=== PATIENT | female | born 1955 | race Caucasian/White ===

== ENCOUNTER 2018-07-30 10:40 | Outpatient (CLI) | payer OTHER ==
[2018-07-30 17:57] LABS: INR 2.1 (0.8-1.2); PT - PROTHROMBIN TIME 23.1 secs (9.9-12.6)
== END 2018-07-30 10:41 | disposition home or self-care (01) ==
LOC: LAB.F 10:40
PROVIDERS: ATTEND Emergency Medicine
DX: I48.1 Persistent atrial fibrillation (principal)
CPT/HCPCS: 36415; 85610

== ENCOUNTER 2021-02-23 14:59 | Outpatient (CLI) | payer OTHER ==
[2021-02-23 19:59] LABS: INR 2.3 (0.8-1.2); PT - PROTHROMBIN TIME 23.9 secs (9.9-12.6)
== END 2021-02-23 15:00 | disposition home or self-care (01) ==
LOC: LAB.S 14:59
PROVIDERS: ATTEND Internal Medicine Clinical Cardiac Electrophysiology
DX: I48.91 Unspecified atrial fibrillation (principal)
CPT/HCPCS: 36415; 85610

== ENCOUNTER 2021-04-05 13:34 | Outpatient (CLI) | payer OTHER ==
[2021-04-05 19:54] LABS: INR 1.7 (0.8-1.2); PT - PROTHROMBIN TIME 18.8 secs (9.9-12.6)
== END 2021-04-05 13:35 | disposition home or self-care (01) ==
LOC: LAB.S 13:34
PROVIDERS: ATTEND Internal Medicine Clinical Cardiac Electrophysiology
DX: I48.91 Unspecified atrial fibrillation (principal)
CPT/HCPCS: 36415; 85610

== ENCOUNTER 2021-04-12 14:19 | Outpatient (CLI) | payer OTHER | END 2021-04-12 14:20 | disposition home or self-care (01) | LOC: LAB.S 14:19 | PROVIDERS: ATTEND Internal Medicine Clinical Cardiac Electrophysiology | DX: I48.91 Unspecified atrial fibrillation (principal) | CPT/HCPCS: 36416; 85610 ==

== ENCOUNTER 2021-04-19 15:26 | Outpatient (CLI) | payer OTHER | END 2021-04-19 15:27 | disposition home or self-care (01) | LOC: LAB.S 15:26 | PROVIDERS: ATTEND Internal Medicine Clinical Cardiac Electrophysiology | DX: I48.91 Unspecified atrial fibrillation (principal) | CPT/HCPCS: 36416; 85610 ==

== ENCOUNTER 2021-05-24 14:52 | Outpatient (CLI) | payer OTHER | END 2021-05-24 14:53 | disposition home or self-care (01) | LOC: LAB.S 14:52 | PROVIDERS: ATTEND Internal Medicine Clinical Cardiac Electrophysiology | DX: I48.91 Unspecified atrial fibrillation (principal) | CPT/HCPCS: 85610 ==

== ENCOUNTER 2021-06-02 17:19 | Outpatient (CLI) | payer OTHER ==
[2021-06-02 17:35] LABS: MUDS CUTOFF CONCENTRATIONS CUTOFF CONC BELOW:
[2021-06-02 20:19] LABS: AMPHETAMINE SCREEN,URINE NEGATIVE (NEGATIVE); BARBITURATE SCREEN,UR NEGATIVE (NEGATIVE); BENZODIAZEPINES SCREEN, URINE NEGATIVE (NEGATIVE); COCAINE SCREEN URINE NEGATIVE (NEGATIVE); METHADONE SCREEN, URINE NEGATIVE (NEGATIVE); METHAMPHETAMINES SCREEN, URINE NEGATIVE (NEGATIVE); OPIATE SCREEN, URINE POSITIVE (NEGATIVE); OXYCODONE SCREEN, URINE NEGATIVE (NEGATIVE); PROPOXYPHENE SCREEN, URINE NEGATIVE (NEGATIVE); THC CANNABINOID SCREEN, URINE NEGATIVE (NEGATIVE); TRICYCLIC ANTIDEPRESSANT,URINE NEGATIVE (NEGATIVE)
== END 2021-06-02 17:20 | disposition home or self-care (01) ==
LOC: LAB.S 17:19
PROVIDERS: ATTEND Internal Medicine
DX: I48.91 Unspecified atrial fibrillation (principal); Z79.891 Long term (current) use of opiate analgesic
CPT/HCPCS: 80306; 85610

== ENCOUNTER 2021-06-16 14:55 | Outpatient (CLI) | payer OTHER | END 2021-06-16 14:56 | disposition home or self-care (01) | LOC: LAB.S 14:55 | PROVIDERS: ATTEND Internal Medicine Clinical Cardiac Electrophysiology | DX: I48.91 Unspecified atrial fibrillation (principal) | CPT/HCPCS: 36416; 85610 ==

== ENCOUNTER 2021-06-30 16:45 | Outpatient (CLI) | payer OTHER | END 2021-06-30 16:46 | disposition home or self-care (01) | LOC: LAB.S 16:45 | PROVIDERS: ATTEND Internal Medicine Clinical Cardiac Electrophysiology | DX: I48.91 Unspecified atrial fibrillation (principal) | CPT/HCPCS: 36416; 85610 ==

== ENCOUNTER 2021-07-21 14:31 | Outpatient (CLI) | payer OTHER | END 2021-07-21 14:32 | disposition home or self-care (01) | LOC: LAB.S 14:31 | PROVIDERS: ATTEND Internal Medicine Clinical Cardiac Electrophysiology | DX: I48.91 Unspecified atrial fibrillation (principal) | CPT/HCPCS: 36416; 85610 ==

== ENCOUNTER 2021-08-18 13:19 | Outpatient (CLI) | payer OTHER ==
[2021-08-18 20:07] LABS: BASOPHILS % (AUTO) 0.9 %; EOSINOPHILS # (AUTO) 0.1 10^3/uL (0.0-0.7); EOSINOPHILS % (AUTO) 1.8 %; HCT - HEMATOCRIT 44.9 % (37.0-47.0); HGB - HEMOGLOBIN 13.6 g/dL (12.0-16.0); LYMPHOCYTES # (AUTO) 0.9 10^3/uL (1.5-3.5); LYMPHOCYTES % (AUTO) 19.5 %; MEAN CORPUSCULAR HEMOGLOBIN 31.5 pg (27.0-31.0); MEAN CORPUSCULAR HGB CONC 30.3 g/dL (32.0-36.0); MEAN CORPUSCULAR VOLUME 103.9 fL (81.0-99.0); MEAN PLATELET VOLUME 10.1 fL (7.9-10.8); MONOCYTES # (AUTO) 0.4 10^3/uL (0.0-1.0); MONOCYTES % (AUTO) 8.5 %; NEUTROPHILS # (AUTO) 3.2 10^3/uL (1.5-6.6); NEUTROPHILS % (AUTO) 69.1 %; PLT - PLATELET COUNT 135 10^3/uL (130-450); RED BLOOD COUNT 4.32 10^6/uL (4.20-5.40); RED CELL DISTRIBUTION WIDTH 16.6 % (12.0-15.0); WHITE BLOOD COUNT 4.6 x10^3/uL (4.8-10.8)
[2021-08-18 20:10] LABS: ALBUMIN 3.8 g/dL (3.2-5.5); ALBUMIN/GLOBULIN RATIO 1.2 (1.0-2.2); BILIRUBIN,TOTAL 1.3 mg/dL (0.2-1.0); CALCIUM 9.9 mg/dL (8.5-10.3); CREATININE 1.2 mg/dL (0.4-1.0); POTASSIUM 3.7 mmol/L (3.5-5.0); TOTAL PROTEIN 7.1 g/dL (6.7-8.2)
== END 2021-08-18 13:20 | disposition home or self-care (01) ==
LOC: LAB.S 13:19
PROVIDERS: ATTEND Internal Medicine Clinical Cardiac Electrophysiology
DX: I48.91 Unspecified atrial fibrillation (principal)
CPT/HCPCS: 36415; 80053; 83704; 85025; 85610

== ENCOUNTER 2021-09-09 14:15 | Outpatient (CLI) | payer OTHER ==
[2021-09-09 15:57] LABS: BILIRUBIN,URINE NEGATIVE (NEGATIVE); GLUCOSE, URINE (UA) NEGATIVE (NEGATIVE); KETONES,URINE (UA) NEGATIVE (NEGATIVE); LEUKOCYTE ESTERASE, URINE LARGE (NEGATIVE); NITRITE,URINE NEGATIVE (NEGATIVE); OCCULT BLOOD,URINE TRACE-INTA (NEGATIVE); PROTEIN,URINE NEGATIVE (NEGATIVE); UROBILINOGEN,URINE 0.2 (NORMAL) E.U./dL (NORMAL)
[2021-09-09 16:12] LABS: BACTERIA,URINE Few /HPF (None Seen); CLARITY,URINE HAZY (CLEAR); SQUAMOUS EPITHELIAL CELL,UR RARE Squamous (<= Few); WBC,URINE >25 /HPF (0-5)
== END 2021-09-09 14:16 | disposition home or self-care (01) ==
LOC: LAB.S 14:15 → LAB 14:16
PROVIDERS: ATTEND Internal Medicine
DX: B34.9 Viral infection, unspecified (principal); I48.91 Unspecified atrial fibrillation
CPT/HCPCS: 36416; 81001; 85610; 87077; 87086; 87181

== ENCOUNTER 2021-09-15 13:56 | Outpatient (CLI) | payer OTHER | END 2021-09-15 13:57 | disposition home or self-care (01) | LOC: LAB.S 13:56 | PROVIDERS: ATTEND Internal Medicine Clinical Cardiac Electrophysiology | DX: I48.91 Unspecified atrial fibrillation (principal) | CPT/HCPCS: 36416; 85610 ==

== ENCOUNTER 2021-09-24 15:16 | Outpatient (CLI) | payer OTHER | END 2021-09-24 15:17 | disposition home or self-care (01) | LOC: LAB.S 15:16 | PROVIDERS: ATTEND Internal Medicine Clinical Cardiac Electrophysiology | DX: I48.91 Unspecified atrial fibrillation (principal) | CPT/HCPCS: 36416; 85610 ==

== ENCOUNTER 2021-10-01 14:57 | Outpatient (CLI) | payer OTHER ==
[2021-10-01 20:27] LABS: ABSOLUTE RETICS # AUTO 0.104 10^6/uL (0.020-0.110); BASOPHILS % (AUTO) 0.9 %; EOSINOPHILS # (AUTO) 0.1 10^3/uL (0.0-0.7); EOSINOPHILS % (AUTO) 2.4 %; HCT - HEMATOCRIT 41.8 % (37.0-47.0); HGB - HEMOGLOBIN 13.3 g/dL (12.0-16.0); LYMPHOCYTES # (AUTO) 0.8 10^3/uL (1.5-3.5); LYMPHOCYTES % (AUTO) 17.3 %; MEAN CORPUSCULAR HEMOGLOBIN 31.9 pg (27.0-31.0); MEAN CORPUSCULAR HGB CONC 31.8 g/dL (32.0-36.0); MEAN CORPUSCULAR VOLUME 100.2 fL (81.0-99.0); MEAN PLATELET VOLUME 10.6 fL (7.9-10.8); MONOCYTES # (AUTO) 0.4 10^3/uL (0.0-1.0); MONOCYTES % (AUTO) 8.2 %; NEUTROPHILS # (AUTO) 3.3 10^3/uL (1.5-6.6); PLT - PLATELET COUNT 156 10^3/uL (130-450); RED BLOOD COUNT 4.17 10^6/uL (4.20-5.40); RED CELL DISTRIBUTION WIDTH 16.5 % (12.0-15.0); WHITE BLOOD COUNT 4.6 x10^3/uL (4.8-10.8)
[2021-10-01 20:44] LABS: ALBUMIN 3.6 g/dL (3.2-5.5); ALBUMIN/GLOBULIN RATIO 1.1 (1.0-2.2); ALKALINE PHOSPHATASE 73 IU/L (42-121); ALT ALANINE AMINOTRANSFERASE 29 IU/L (10-60); AST ASPARTATE AMINOTRANSFERASE 31 IU/L (10-42); BILIRUBIN,TOTAL 1.4 mg/dL (0.2-1.0); BUN - BLOOD UREA NITROGEN 38 mg/dL (6-20); CALCIUM 9.7 mg/dL (8.5-10.3); CARBON DIOXIDE - CO2 30 mmol/L (21-32); CHLORIDE 97 mmol/L (101-111); CHOL/HDL RATIO 2.4 (<4.4); CHOLESTEROL 95 mg/dL; CREATININE 1.5 mg/dL (0.4-1.0); GFR - MDRD 35 (>89); GLUCOSE 129 mg/dL (70-100); HDL CHOLESTEROL 40 mg/dL; LDL CHOLESTEROL,CALCULATED 36 mg/dL; LDL/HDL RATIO 0.9 (<4.4); POTASSIUM 3.5 mmol/L (3.5-5.0); SODIUM 139 mmol/L (135-145); TRIGLYCERIDES 95 mg/dL; VLDL CHOLESTEROL 19 mg/dL
[2021-10-01 22:08] LABS: ESTIMATED AVERAGE GLUCOSE 131 mg/dL (70-100); HEMOGLOBIN A1c% 6.2 % (4.27-6.07)
[2021-10-05 22:46] LABS: ALBUMIN 3.5 g/dL (3.8-4.8); ALPHA 1 GLOBULIN 0.3 g/dL (0.2-0.3); ALPHA 2 GLOBULIN 0.6 g/dL (0.5-0.9); BETA 1 GLOBULIN 0.6 g/dL (0.4-0.6); BETA 2 GLOBULIN 0.3 g/dL (0.2-0.5); GAMMA GLOBULIN 1.5 g/dL (0.8-1.7)
== END 2021-10-01 14:58 | disposition home or self-care (01) ==
LOC: LAB.S 14:57
PROVIDERS: ATTEND Internal Medicine Clinical Cardiac Electrophysiology
DX: I48.91 Unspecified atrial fibrillation (principal); I10 Essential (primary) hypertension
CPT/HCPCS: 36415; 36416; 80053; 80061; 81599; 82607; 82746; 83010; 83036; 83615; 83721; 84155; 84165; 85025; 85045; 85610

== ENCOUNTER 2022-08-11 10:48 | Outpatient (CLI) | payer OTHER | END 2022-08-11 10:49 | disposition EMS.NT | LOC: EMS 10:48 | DX: Z03.89 Encounter for observation for other suspected diseases and conditions ruled out (principal) ==

== ENCOUNTER 2022-10-06 14:54 | Outpatient (CLI) | payer OTHER | END 2022-10-06 23:59 | disposition EMS.NT | LOC: EMS 14:54 | DX: R53.1 Weakness (principal) ==

== ENCOUNTER 2022-10-22 11:07 | Outpatient (CLI) | payer OTHER | END 2022-10-22 11:08 | disposition EMS.NT | LOC: EMS 11:07 | DX: Z03.89 Encounter for observation for other suspected diseases and conditions ruled out (principal) ==

== ENCOUNTER 2022-10-24 02:45 | Outpatient (CLI) | payer MEDICARE | END 2022-10-24 02:46 | disposition critical access hospital (66) | LOC: EMS 02:45 | DX: R29.6 Repeated falls (principal); R41.0 Disorientation, unspecified; R06.02 Shortness of breath; R53.1 Weakness; R53.83 Other fatigue | CPT/HCPCS: A0425; A0429 ==

== ENCOUNTER 2022-10-24 03:28 | Emergency (ER) | payer MEDICARE, OTHER ==
[2022-10-24] MEDS ORDERED: BACITRACIN ZINC OINT 1 PACKET TOP STA (03:55)
[2022-10-24] MEDS ORDERED: TETANUS/DIPHTHERIA/PERTUSSIS 0.5 ML SYRINGE IM ONE (03:55)
[2022-10-24 05:02] LABS: BASOPHILS % (AUTO) 0.2 %; EOSINOPHILS % (AUTO) 0.1 %; HCT - HEMATOCRIT 49.1 % (37.0-47.0); LYMPHOCYTES # (AUTO) 0.7 10^3/uL (1.5-3.5); LYMPHOCYTES % (AUTO) 4.1 %; MEAN CORPUSCULAR HEMOGLOBIN 30.3 pg (27.0-31.0); MEAN CORPUSCULAR HGB CONC 30.5 g/dL (32.0-36.0); MEAN CORPUSCULAR VOLUME 99.2 fL (81.0-99.0); MEAN PLATELET VOLUME 10.8 fL (7.9-10.8); MONOCYTES # (AUTO) 1.5 10^3/uL (0.0-1.0); MONOCYTES % (AUTO) 8.7 %; NEUTROPHILS # (AUTO) 14.7 10^3/uL (1.5-6.6); NEUTROPHILS % (AUTO) 86.4 %; NRBC ABSOLUTE COUNT (AUTO) 0.02 x10^3/uL; NUCLEATED RED BLOOD CELLS AUTO 0.1 /100WBC; PLT - PLATELET COUNT 122 10^3/uL (130-450); RED BLOOD COUNT 4.95 10^6/uL (4.20-5.40); RED CELL DISTRIBUTION WIDTH 17.2 % (12.0-15.0); VBG PCO2 59.1 mmHg (41-51); VBG PH 7.332 (7.31-7.41)
[2022-10-24 05:03] LABS: VBG BASE EXCESS 2.9 mmol/L (-2 - +2); VBG HCO3 30.6 mmol/L (23-28); VBG OXYGEN SATURATION 78.4 % (60-80); VBG PO2 46.2 mmHg (25-47); VBG TOTAL CO2 32.4 mmol/L (24-29)
[2022-10-24 05:07] LABS: B. PARAPERTUSSIS- RESP PCR PAN NOT DETECTED; B. PERTUSSIS- RESP PCR PANEL NOT DETECTED; C. PNEUMONIAE- RESP PCR PANEL NOT DETECTED; CORONAVIRUS 229E-RESP PCR NOT DETECTED; CORONAVIRUS HKU1-RESP PCR NOT DETECTED; CORONAVIRUS NL63-RESP PCR NOT DETECTED; CORONAVIRUS OC43-RESP PCR NOT DETECTED; HUMAN METAPNEUMOVIRUS NOT DETECTED; INFLUENZA A- RESP PCR PANEL NOT DETECTED; INFLUENZA B - RESP PCR PANEL NOT DETECTED; M. PNEUMONIAE- RESP PCR PANEL NOT DETECTED; PARAINFLUENZA VIRUS 1 NOT DETECTED; PARAINFLUENZA VIRUS 2 NOT DETECTED; PARAINFLUENZA VIRUS 3 NOT DETECTED; PARAINFLUENZA VIRUS 4 NOT DETECTED; RHINOVIRUS/ENTEROVIRUS NOT DETECTED; RSV- RESP PCR PANEL NOT DETECTED; SARS-CoV-2 -RESP PCR PANEL NOT DETECTED
[2022-10-24] MEDS ORDERED: IPRATROPIUM/ALBUTEROL 3 ML NEB INH STA (05:31)
--- NOTE | 2022-10-24 06:06 | ED Physician Documentation ---
History of Present Illness - Stated complaint Stated Complaint: GLF, BILAT CELLULITIS, PRESSURE SORES - Chief complaint Chief Complaint: Neuro - History obtained from History obtained from: Patient - Additonal information Additional information: 67yF with pmh afib on warfarin, chronic lymphedema, ambulatory with walker, p/w weakness. patient slumped to the ground this past evening in a controlled fall, without hitting her head. her was unable to get her up so called ems. on scene her pulse ox was 86% RA improving to 100% on 2 L o2. patient has been weaker and breathing more heavily than usual over the past few weeks per . they deny fever, cough or recent illness. Review of Systems Ten Systems: 10 systems reviewed and negative Constitutional: denies: Fever, Chills Cardiac: denies: Chest pain / pressure Respiratory: reports: Dyspnea. denies: Cough Neurologic: reports: Generalized weakness. denies: Focal weakness, Numbness PD PAST MEDICAL HISTORY - Past Medical History Past Medical History: Yes Cardiovascular: Hypertension, Atrial fibrillation Musculoskeletal: Other Derm: Other Other Past Medical History: Cellulitis. Degenerative Arthritis - Present Medications Home Medications: Ambulatory Orders Medication Instructions Recorded Confirmed Home Medications Unobtainable 10/24/22 10/24/22 [HOME MEDICATIONS UNOBTAINABLE] - Allergies Allergies/Adverse Reactions: Allergies Allergy/AdvReac Type Severity Reaction Status Date / Time No Known Drug Allergies Allergy Verified 10/24/22 03:48 - Social History Does the pt smoke?: No Smoking Status: Never smoker Does the pt drink ETOH?: No Does the pt have substance abuse?: No - Immunizations Immunizations are current?: Yes - POLST Patient has POLST: No PD ED PE NORMAL - Vitals Vital signs reviewed: Yes - General General: Alert and oriented X 3, No acute distress, Other (morbidly obese) - HEENT HEENT: Atraumatic, PERRL, EOMI - Neck Neck: Supple, no meningeal sign - Cardiac Cardiac: Other (regular rate, irregular rhythm) - Respiratory Respiratory: No respiratory distress, Clear bilaterally - Abdomen Abdomen: Non tender, Non distended - Derm Derm: Normal color, Warm and dry - Extremities Extremities: Other (BL chronic lymphedema with sores. no cellulitis) - Neuro Neuro: No motor deficit, No sensory deficit - Psych Psych: Normal mood, Normal affect Results - Vitals Vitals: Vital Signs - 24 hr 10/24/22 10/24/22 10/24/22 03:49 05:45 06:30 Temperature 37.2 C Heart Rate 83 75 73 Respiratory 27 H 22 22 Rate Blood Pressure 141/101 H 95/84 H O2 Saturation 86 L 92 If not protocol 3 : Oxygen Flow, liters/minute Oxygen O2 Source Nasal cannula - EKG (time done) 0523 Rate: Rate (enter#) (75) Rhythm: Atrial fibrillation Intervals: RBBB - Labs Labs: Laboratory Tests 10/24/22 10/24/22 10/24/22 04:09 04:53 04:53 WBC 17.0 H RBC 4.95 Hgb 15.0 Hct 49.1 H MCV 99.2 H MCH 30.3 MCHC 30.5 L RDW 17.2 H Plt Count 122 L MPV 10.8 Neut # (Auto) 14.7 H Lymph # (Auto) 0.7 L Cannon # (Auto) 1.5 H Eos # (Auto) 0.0 Baso # (Auto) 0.0 Absolute Nucleated RBC 0.02 Nucleated RBC % 0.1 VBG pH 7.332 VBG pCO2 59.1 H VBG pO2 46.2 VBG HCO3 30.6 H VBG Total CO2 32.4 H VBG O2 Saturation 78.4 VBG Base Excess 2.9 H Sodium Potassium Chloride Carbon Dioxide Anion Gap BUN Creatinine Estimated GFR (MDRD) Glucose Calcium Total Bilirubin AST ALT Alkaline Phosphatase Total Protein Albumin Globulin Albumin/Globulin Ratio Lipase Nasal Adenovirus (PCR) NOT DETECTED Nasal B. parapertussis DNA (PCR) NOT DETECTED Nasal Coronavir 229E PCR NOT DETECTED Nasal Coronavir HKU1 PCR NOT DETECTED Nasal Coronavir NL63 PCR NOT DETECTED Nasal Coronavir OC43 PCR NOT DETECTED Nasal Enterovir/Rhinovir PCR NOT DETECTED Nasal Influenza B PCR NOT DETECTED Nasal Influenza A PCR NOT DETECTED Nasal Parainfluen 1 PCR NOT DETECTED Nasal Parainfluen 2 PCR NOT DETECTED Nasal Parainfluen 3 PCR NOT DETECTED Nasal Parainfluen 4 PCR NOT DETECTED Nasal RSV (PCR) NOT DETECTED Nasal B.pertussis DNA PCR NOT DETECTED Nasal C.pneumoniae (PCR) NOT DETECTED Jose Alejandro Human Metapneumo PCR NOT DETECTED Nasal M.pneumoniae (PCR) NOT DETECTED Nasal SARS-CoV-2 (PCR) NOT DETECTED 10/24/22 05:52 WBC RBC Hgb Hct MCV MCH MCHC RDW Plt Count MPV Neut # (Auto) Lymph # (Auto) Cannon # (Auto) Eos # (Auto) Baso # (Auto) Absolute Nucleated RBC Nucleated RBC % VBG pH VBG pCO2 VBG pO2 VBG HCO3 VBG Total CO2 VBG O2 Saturation VBG Base Excess Sodium 142 Potassium 3.7 Chloride 100 L Carbon Dioxide 32 Anion Gap 10.0 BUN 52 H Creatinine 1.8 H Estimated GFR (MDRD) 28 L Glucose 110 H Calcium 9.9 Total Bilirubin 2.2 H AST 34 ALT 31 Alkaline Phosphatase 141 H Total Protein 6.4 L Albumin 3.1 L Globulin 3.3 Albumin/Globulin Ratio 0.9 L Lipase 46 Nasal Adenovirus (PCR) Nasal B. parapertussis DNA (PCR) Nasal Coronavir 229E PCR Nasal Coronavir HKU1 PCR Nasal Coronavir NL63 PCR Nasal Coronavir OC43 PCR Nasal Enterovir/Rhinovir PCR Nasal Influenza B PCR Nasal Influenza A PCR Nasal Parainfluen 1 PCR Nasal Parainfluen 2 PCR Nasal Parainfluen 3 PCR Nasal Parainfluen 4 PCR Nasal RSV (PCR) Nasal B.pertussis DNA PCR Nasal C.pneumoniae (PCR) Jose Alejandro Human Metapneumo PCR Nasal M.pneumoniae (PCR) Nasal SARS-CoV-2 (PCR) PD Medical Decision Making - ED course ED course: 67yF p/w generalized weakness causing her to be unable to get up from ground this past evening. also with low pulse ox in 80s on scene. per spouse she does not have hx of copd but does use cpap at nighttime for sleep apnea. patient responded well to nebulizer treatment in the ED, appearing more comfortable after. still with pulse ox in high 80s with good wave form. discussed her leukocytosis and gorge that will need close followup. would like to take her home at this time. plan to dc home to f/u with pcp for further management. return precautions given. Departure - Departure Disposition: 01 Home, Self Care Clinical Impression: Weakness, Shortness of breath, Leukocytosis, GORGE (acute kidney injury) Condition: Stable Instructions: ED Weakness [facility] Follow-Up: Anuel Graves MD [Provider Admit Priv/Credential] - Comments: Ms. Norris was seen in the emergency department for weakness and shortness of breath.She had an increased white blood cell count on lab work which can indicate infection or inflammation. This should be followed up closely and if she develops a fever she needs to come back for further evaluation. She also has mild kidney injury and should stay well-hydrated.Plan to follow-up with her primary care provider. A referral is enclosed for a local primary care provider on [facility]. Return to the emergency department if she develops any new or worsening symptoms or you have other concerns.
[2022-10-24 06:13] LABS: ALBUMIN 3.1 g/dL (3.2-5.5); ALBUMIN/GLOBULIN RATIO 0.9 (1.0-2.2); BILIRUBIN,TOTAL 2.2 mg/dL (0.2-1.0); CALCIUM 9.9 mg/dL (8.5-10.3); CREATININE 1.8 mg/dL (0.4-1.0); POTASSIUM 3.7 mmol/L (3.5-5.0); TOTAL PROTEIN 6.4 g/dL (6.7-8.2)
[2022-10-24] MEDS ORDERED: SODIUM CHLORIDE 0.9% 250 ML IV STA (06:21)
[2022-10-24 06:40] VITALS: BP 95/84
--- NOTE | 2022-10-24 08:18 | XRAY Report ---
PROCEDURE: Chest 1 View X-Ray INDICATIONS: Chest Pain TECHNIQUE: One view of the chest was acquired. COMPARISON: None. FINDINGS: Surgical changes and devices: None. Lungs and pleura: An incomplete inspiratory result is noted, with low lung volumes and crowding of t he vascular markings. No focal infiltrates are seen. No large pneumothorax or large pleural effusion can be seen. Perihilar congestion is seen. Mediastinum: Mediastinal contours appear normal. Heart size is at least moderately enlarged. Bones and chest wall: No suspicious bony lesions. Age-appropriate degenerative changes are seen. O verlying soft tissues appear unremarkable. IMPRESSION: Splenomegaly with mild perihilar congestion. Early CHF is suspected. Note: No significant discrepancy from the preliminary report. Reviewed by: Stevan Greenberg MD on 10/24/2022 7:17 AM [facility] Approved by: Stevan Greenberg MD on 10/24/2022 7:17 AM [facility] Station ID: [id number]
== END 2022-10-24 07:10 | disposition home or self-care (01) ==
LOC: EDUNIT# → ED 03:28
DX: R06.02 Shortness of breath (principal); R53.1 Weakness; D72.829 Elevated white blood cell count, unspecified; N17.9 Acute kidney failure, unspecified; Z20.822 Contact with and (suspected) exposure to COVID-19
CPT/HCPCS: 36415; 71045; 80053; 82803; 83690; 85025; 87633; 90471; 90715; 93005; 94640; 94664; 99283; 99284; A9270

== ENCOUNTER 2022-10-24 09:02 | Outpatient (CLI) | payer MEDICARE | END 2022-10-24 09:03 | disposition EMS.NT | LOC: EMS 09:02 | DX: R53.1 Weakness (principal); E66.01 Morbid (severe) obesity due to excess calories ==

== ENCOUNTER 2022-10-29 02:21 | Outpatient (CLI) | payer MEDICARE | END 2022-10-29 02:22 | disposition critical access hospital (66) | LOC: EMS 02:21 | DX: R53.1 Weakness (principal); I95.9 Hypotension, unspecified; Z99.81 Dependence on supplemental oxygen | CPT/HCPCS: A0425; A0427 ==

== ENCOUNTER 2022-10-29 03:07 | Emergency (ER) | payer MEDICARE ==
--- NOTE | 2022-10-29 03:07 | ED Physician Documentation ---
History of Present Illness - Stated complaint Stated Complaint: FALL, WEAKNESS - History obtained from History obtained from: Patient, Family - History of Present Illness Timing: Enter time (00:30), Today Pain level max: 0 Pain level now: 0 - Additonal information Additional information: Patient is brought in by ambulance. HPI is from patient as well as from her who is in the ER at bedside. Additional information is provided by EMS. Patient presents due to a fall at approximately 12:30 AM today. Due to morbid obesity, she spends nearly all day in bed but with the help of her she transfers to a walker to get to the bathroom and then transfers back with a walker and gets back into the bed. EMS reports that they have had many calls on this patient over the past several weeks due to falls, but patient nearly always refuses transport to the ER, but rather just needs a lift assist back into her bed. She did present to this emergency department 5 days ago after she fell and was discharged without a specific diagnosis or particularly concerning finding on testing performed at that time. The reason she elected to come to the emergency department tonight after falling is due to a concern that she has been gradually getting weaker over the past few weeks, with some difficulty in articulating her thoughts and being able to maintain mental and conversational focus.Regarding the nature of the fall tonight, her says that and trying to transfer from the walker over to the toilet, patient lost her balance and fell. She denies hitting her head and there was no loss of consciousness. Review of Systems Constitutional: denies: Fever, Chills, Sweats Cardiac: reports: Reviewed and negative Respiratory: reports: Dyspnea. denies: Cough GI: reports: Reviewed and negative : denies: Dysuria, Frequency Musculoskeletal: reports: Extremity swelling (Chronic bilateral lower extremity lymphedema) Neurologic: reports: Generalized weakness. denies: Focal weakness, Numbness, Headache, Head injury, LOC PD PAST MEDICAL HISTORY - Past Medical History Past Medical History: Yes Cardiovascular: Hypertension, High cholesterol, Atrial fibrillation Musculoskeletal: Osteoarthritis - Present Medications Home Medications: Ambulatory Orders Medication Instructions Recorded Confirmed Acetaminophen [Tylenol] 650 mg PO Q6H PRN 10/29/22 10/29/22 Atorvastatin [Lipitor] 20 mg PO QPM 10/29/22 10/29/22 Diclofenac Sodium 1% Gel [Voltaren 1 gm TOP QID 10/29/22 10/29/22 Gel] Fluoxetine HCl [Prozac] 40 mg PO DAILY 10/29/22 10/29/22 HYDROcod/ACETAM 5/325 [[place] 5/325] 1 tablet PO Q4HR PRN 10/29/22 10/29/22 Lisinopril/Hydrochlorothiazide 2 each PO DAILY 10/29/22 10/29/22 [Zestoretic 20-12.5 mg Tablet] Metoprolol Tartrate [Lopressor] 50 mg PO DAILY 10/29/22 10/29/22 Potassium Chloride 10 meq PO DAILY 10/29/22 10/29/22 Torsemide 20 mg PO DAILY 10/29/22 10/29/22 Warfarin Sodium [Coumadin] 2 mg PO DAILY 10/29/22 10/29/22 Warfarin [Coumadin] 5 mg PO DAILY 10/29/22 10/29/22 - Allergies Allergies/Adverse Reactions: Allergies Allergy/AdvReac Type Severity Reaction Status Date / Time No Known Drug Allergies Allergy Verified 10/29/22 03:25 - Living Situation Living Situation: reports: With spouse/s.o. 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, No motor deficit, No sensory deficit, Normal speech Eye Opening: Spontaneous Motor: Obeys Commands Verbal: Oriented GCS Score: 15 PD ED PE EXPANDED - Cardiac Cardiac: Regular Rate, Irregularly irregular - Extremities Extremities: Pedal edema bilateral Results - Vitals Vitals: Vital Signs - 24 hr 10/29/22 10/29/22 10/29/22 03:10 03:20 04:30 Temperature 36.5 C Heart Rate 60 48 L 73 Respiratory 20 18 18 Rate Blood Pressure 147/119 H 147/119 H 98/59 L O2 Saturation 96 100 98 If not protocol 2 2 : Oxygen Flow, liters/minute 10/29/22 10/29/22 10/29/22 05:30 06:30 07:34 Temperature 36.8 C Heart Rate 66 67 62 Respiratory 16 18 18 Rate Blood Pressure 94/65 101/73 90/76 O2 Saturation 96 97 96 If not protocol 2 2 2 : Oxygen Flow, liters/minute 10/29/22 10/29/22 09:47 10:39 Temperature 36 C L Heart Rate 73 70 Respiratory 18 19 Rate Blood Pressure 87/59 L 100/86 H O2 Saturation 99 100 If not protocol 2 2 : Oxygen Flow, liters/minute Oxygen O2 Source Nasal cannula Oxygen Flow Rate 2 - Labs Labs: Microbiology 10/29/22 04:55 Urine Culture - Preliminary Urine,Clean Catch CULTURE IN PROGRESS. RESULTS TO FOLLOW. Laboratory Tests 10/29/22 10/29/22 10/29/22 03:49 03:49 03:49 WBC 5.9 RBC 4.95 Hgb 15.2 Hct 49.1 H MCV 99.2 H MCH 30.7 MCHC 31.0 L RDW 17.3 H Plt Count 122 L MPV 9.7 Neut # (Auto) 4.3 Lymph # (Auto) 0.8 L Randolph # (Auto) 0.7 Eos # (Auto) 0.1 Baso # (Auto) 0.0 Absolute Nucleated RBC 0.07 Nucleated RBC % 1.2 PT > 120.0 H* INR > 10.0 H* APTT 65.8 H Sodium 134 L Potassium 4.9 Chloride 92 L Carbon Dioxide 30 Anion Gap 12.0 BUN 83 H* Creatinine 3.7 H Estimated GFR (MDRD) 12 L Glucose 93 Lactic Acid Calcium 9.8 Total Bilirubin 1.4 H AST 37 ALT 37 Alkaline Phosphatase 148 H B-Natriuretic Peptide Total Protein 6.5 L Albumin 2.9 L Globulin 3.6 Albumin/Globulin Ratio 0.8 L Lipase 81 H TSH Urine Color Urine Clarity Urine pH Ur Specific [place] Urine Protein Urine Glucose (UA) Urine Ketones Urine Occult Blood Urine Nitrite Urine Bilirubin Urine Urobilinogen Ur Leukocyte Esterase Urine RBC Urine WBC Ur Squamous Epith Cells Urine Bacteria Ur Microscopic Review Urine Culture Comments SARS-CoV-2 (PCR) 10/29/22 10/29/22 10/29/22 03:49 03:49 03:49 WBC RBC Hgb Hct MCV MCH MCHC RDW Plt Count MPV Neut # (Auto) Lymph # (Auto) Randolph # (Auto) Eos # (Auto) Baso # (Auto) Absolute Nucleated RBC Nucleated RBC % PT INR APTT Sodium Potassium Chloride Carbon Dioxide Anion Gap BUN Creatinine Estimated GFR (MDRD) Glucose Lactic Acid 1.5 Calcium Total Bilirubin AST ALT Alkaline Phosphatase B-Natriuretic Peptide 701 H Total Protein Albumin Globulin Albumin/Globulin Ratio Lipase TSH 3.87 Urine Color Urine Clarity Urine pH Ur Specific [place] Urine Protein Urine Glucose (UA) Urine Ketones Urine Occult Blood Urine Nitrite Urine Bilirubin Urine Urobilinogen Ur Leukocyte Esterase Urine RBC Urine WBC Ur Squamous Epith Cells Urine Bacteria Ur Microscopic Review Urine Culture Comments SARS-CoV-2 (PCR) 10/29/22 10/29/22 10/29/22 04:55 05:58 09:45 WBC RBC Hgb Hct MCV MCH MCHC RDW Plt Count MPV Neut # (Auto) Lymph # (Auto) Randolph # (Auto) Eos # (Auto) Baso # (Auto) Absolute Nucleated RBC Nucleated RBC % PT > 120.0 H* INR > 10.0 H* APTT Sodium Potassium Chloride Carbon Dioxide Anion Gap BUN Creatinine Estimated GFR (MDRD) Glucose Lactic Acid Calcium Total Bilirubin AST ALT Alkaline Phosphatase B-Natriuretic Peptide Total Protein Albumin Globulin Albumin/Globulin Ratio Lipase TSH Urine Color YELLOW Urine Clarity HAZY Urine pH 6.5 Ur Specific [place] 1.015 Urine Protein TRACE Urine Glucose (UA) NEGATIVE Urine Ketones NEGATIVE Urine Occult Blood LARGE H Urine Nitrite NEGATIVE Urine Bilirubin NEGATIVE Urine Urobilinogen 0.2 (NORMAL) Ur Leukocyte Esterase MODERATE H Urine RBC 6-10 H Urine WBC 11-25 H Ur Squamous Epith Cells FEW Squamous Urine Bacteria Moderate H Ur Microscopic Review INDICATED Urine Culture Comments INDICATED SARS-CoV-2 (PCR) NOT DETECTED - Rads (name of study) chest xray Radiology: Prelim report reviewed, See rad report CTH Radiology: Prelim report reviewed, Discussed with rads, Critical result, See rad report PD Medical Decision Making - ED course Complexity details: reviewed old records, reviewed results, re-evaluated patient , considered differential, d/w patient, d/w family ED course: Patient presents after a fall at home. She is morbidly obese , weighing 222 kg. On tonight's tests, she is found to be supratherapeutic on her warfarin with an INR of greater than 10. She has a BUN of 83 and creatinine of 3.7. This represents more than double her creatinine from 5 days ago when it was 1.6. She is afebrile and her lactate is normal at 1.5. She has a normal hemoglobin of 15.1. Note that she takes warfarin for atrial fibrillation. During her ED stay, she is in rate controlled atrial fibrillation on the monitor. The initial report from radiology regarding her CAT scan of her head was that there was no acute pathology. I ordered and she was given 5 mg of vitamin K orally for INR of greater than 10 without any evidence of bleeding on exam or on HPI. Unfortunately, and over read was provided by radiology a few hours into patient's stay and this new reading was that the CAT scan of the head evidences a small right parafalcine subdural hemorrhage, 4 mm in thickness without mass- effect. Because of this finding, she is then given prothrombin concentrate (PCC) to fully reverse the warfarin. Incidental findings of UTI on urinalysis and possible pneumonia (she has a small right perihilar infiltrate that is new compared to 5 days ago); for these findings she is given 2 g of Rocephin IV. She had some low normal blood pressure readings during ED stay but otherwise was stable both by vital signs as well as clinical appearance. She remained AAO x3 with GCS 15 during her ED stay. Care of patient turned over to Dr. Cummings at end of my shift pending appropriate disposition. Plan is to call [facility] transfer center to see if transfer to [facility] can be arranged. Results of tests were discussed with patient and her as well as plan to reverse the Coumadin and try to transfer her to [facility] due to the critical finding on CT head, and they are understanding this plan and agree with this plan. - Critical Care Time(min): 80 Time Includes: Direct patient care, Review records, Reassess patient, Document care, Coordinate care, Family consult for tx dec, See progress note Data interpretation: Labs, Pulse ox, CXR, See progress note Procedures included in critical care time: See progress note Procedures excluded from critical care time: EKG, See progress note Departure - Departure Disposition: 02 Transfer Acute Care Hosp Clinical Impression: GORGE (acute kidney injury), Supratherapeutic INR, Morbid obesity, Subdural hematoma, Subdural hemorrhage UTI (urinary tract infection) Qualifiers: Urinary tract infection type: acute cystitis Hematuria presence: with hematuria Qualified Code(s): N30.01 - Acute cystitis with hematuria Pneumonia Qualifiers: Pneumonia type: due to unspecified organism Laterality: right Lung location: middle lobe of lung Qualified Code(s): J18.9 - Pneumonia, unspecified organism Condition: Stable Discharge Date/Time: 10/29/22 11:19
[2022-10-29 04:01] LABS: BASOPHILS % (AUTO) 0.2 %; EOSINOPHILS # (AUTO) 0.1 10^3/uL (0.0-0.7); HCT - HEMATOCRIT 49.1 % (37.0-47.0); HGB - HEMOGLOBIN 15.2 g/dL (12.0-16.0); LYMPHOCYTES # (AUTO) 0.8 10^3/uL (1.5-3.5); LYMPHOCYTES % (AUTO) 13.5 %; MEAN CORPUSCULAR HEMOGLOBIN 30.7 pg (27.0-31.0); MEAN CORPUSCULAR VOLUME 99.2 fL (81.0-99.0); MEAN PLATELET VOLUME 9.7 fL (7.9-10.8); MONOCYTES # (AUTO) 0.7 10^3/uL (0.0-1.0); MONOCYTES % (AUTO) 11.3 %; NEUTROPHILS # (AUTO) 4.3 10^3/uL (1.5-6.6); NEUTROPHILS % (AUTO) 72.7 %; NRBC ABSOLUTE COUNT (AUTO) 0.07 x10^3/uL; NUCLEATED RED BLOOD CELLS AUTO 1.2 /100WBC; PLT - PLATELET COUNT 122 10^3/uL (130-450); RED BLOOD COUNT 4.95 10^6/uL (4.20-5.40); RED CELL DISTRIBUTION WIDTH 17.3 % (12.0-15.0); WHITE BLOOD COUNT 5.9 x10^3/uL (4.8-10.8)
[2022-10-29 04:16] LABS: PARTIAL THROMBOPLASTIN TIME 65.8 secs (24.9-33.3)
[2022-10-29 04:17] LABS: ALBUMIN 2.9 g/dL (3.2-5.5); ALBUMIN/GLOBULIN RATIO 0.8 (1.0-2.2); BILIRUBIN,TOTAL 1.4 mg/dL (0.2-1.0); CALCIUM 9.8 mg/dL (8.5-10.3); CREATININE 3.7 mg/dL (0.4-1.0); POTASSIUM 4.9 mmol/L (3.5-5.0); TOTAL PROTEIN 6.5 g/dL (6.7-8.2)
[2022-10-29 04:22] LABS: INR > 10.0 (0.8-1.2); PT - PROTHROMBIN TIME > 120.0 secs (9.9-12.6)
[2022-10-29 05:09] LABS: BILIRUBIN,URINE NEGATIVE (NEGATIVE); GLUCOSE, URINE (UA) NEGATIVE (NEGATIVE); KETONES,URINE (UA) NEGATIVE (NEGATIVE); LEUKOCYTE ESTERASE, URINE MODERATE (NEGATIVE); NITRITE,URINE NEGATIVE (NEGATIVE); OCCULT BLOOD,URINE LARGE (NEGATIVE); PH,URINE 6.5 PH (5.0-7.5); PROTEIN,URINE TRACE mg/dL (NEGATIVE); UROBILINOGEN,URINE 0.2 (NORMAL) E.U./dL (NORMAL)
[2022-10-29 05:14] LABS: CLARITY,URINE HAZY (CLEAR)
[2022-10-29 05:15] LABS: BACTERIA,URINE Moderate /HPF (None Seen); SQUAMOUS EPITHELIAL CELL,UR FEW Squamous (<= Few)
[2022-10-29] MEDS ORDERED: SODIUM CHLORIDE 0.9% 1,000 ML IV STA ×2 (05:26→09:29)
[2022-10-29] MEDS ORDERED: PHYTONADIONE 10 MG/ML AMP PO STA (06:11)
[2022-10-29] MEDS ORDERED: CHERRY SYRUP 10 ML UDC PO ONE (06:11)
[2022-10-29 06:22] LABS: INR > 10.0 (0.8-1.2); PT - PROTHROMBIN TIME > 120.0 secs (9.9-12.6)
[2022-10-29] MEDS ORDERED: cefTRIAXone 2 GM in SODIUM CHLORIDE 0.9% MINIBAG 100 ML IV STA (08:33)
--- NOTE | 2022-10-29 08:46 | XRAY Report ---
PROCEDURE: Chest 1 View X-Ray INDICATIONS: chest pain TECHNIQUE: One view of the chest was acquired. COMPARISON: None. FINDINGS: Surgical changes and devices: None. Lungs and pleura: Bibasilar atelectasis and or infiltrate elevated right hemidiaphragm noted. Mediastinum: Heart size enlarged. Moderate vascular congestion noted. Bones and chest wall: No suspicious bony lesions. Overlying soft tissues appear unremarkable. IMPRESSION: Primarily in moderate vascular congestion. Bibasilar atelectasis and or infiltrates associated with elevated right hemidiaphragm Note: Final report is concordant with preliminary interpretation provided by [facility] Reviewed by: Eren Herman MD on 10/29/2022 7:45 AM [place] Approved by: Eren Herman MD on 10/29/2022 7:45 AM [facility] Station ID: [id number]
--- NOTE | 2022-10-29 09:03 | CT Report ---
PROCEDURE: CT brain without contrast INDICATIONS: recent fall ,supratherapeutic on warfarin TECHNIQUE: Noncontrast 4.5 mm thick angled axial sections acquired from the foramen magnum to the vertex. For r adiation dose reduction, the following was used: automated exposure control, adjustment of mA and/or kV according to patient size. COMPARISON: None. FINDINGS: Image quality: Excellent. CSF spaces: Basal cisterns are patent. No extra-axial fluid collections. Ventricles are normal in size and shape. Brain: Moderate atrophy and chronic ischemic change. There is a small right parafalcine globular subd ural hematoma noted on image 08/21 and 09/24 measuring 4 mm in thickness and 8 mm anterior posterior. No mass effect or midline shift. No evidence of parenchymal hemorrhage. Skull and face: Calvarium and visualized facial bones are intact, without suspicious lesions. Sinuses: Visualized sinuses and mastoids are clear. IMPRESSION: 1. Small right parafalcine subdural hemorrhage is somewhat globular and measures 4 mm in thickness wi thout mass effect Critical finding was discussed with patient's ER physician, Dr Quick, at 7:50 AM [place] time, 2021 This final report is discordant with the preliminary interpretation by [facility], [employer]. Discrepa ncy notification submitted. Reviewed by: Eren Herman MD on 10/29/2022 8:02 AM [place] Approved by: Eren Herman MD on 10/29/2022 8:02 AM [place] Station ID: [id number]
[2022-10-29] MEDS ORDERED: PROTHROMBIN COMPLEX CONC 500 UNIT VIAL IVP STA (09:13)
[2022-10-29] MEDS ORDERED: cefTRIAXone 2 GM VIAL ONE (09:24)
[2022-10-29 10:39] VITALS: BP 100/86
--- NOTE | 2022-11-02 21:07 | ED Physician Documentation ---
ED Addendum - Addendum Addendum: 11/02/22 21:[address] Quick. He had called [facility] for transfer. [facility] called back and accepted the patient due to injuries, anticoagulation, etc. Verbal report to ED Attending. Patient remained stable and was transported via Air due to severity of injuries and prolonged transport time by ground. Transferred in stable condition.
== END 2022-10-29 11:19 | disposition short-term general hospital (02) ==
LOC: EDUNIT# → ED 03:07
DX: S06.5X0A Traumatic subdural hemorrhage without loss of consciousness, initial encounter (principal); W18.39XA Other fall on same level, initial encounter; Y93.E8 Activity, other personal hygiene; Y92.002 Bathroom of unspecified non-institutional (private) residence as the place of occurrence of the external cause; R79.1 Abnormal coagulation profile; N17.9 Acute kidney failure, unspecified; N30.01 Acute cystitis with hematuria; J18.9 Pneumonia, unspecified organism; I48.91 Unspecified atrial fibrillation; E66.01 Morbid (severe) obesity due to excess calories; Z68.45 Body mass index [BMI] 70 or greater, adult; Z79.01 Long term (current) use of anticoagulants; Z20.822 Contact with and (suspected) exposure to COVID-19
CPT/HCPCS: 36415; 70450; 71045; 80053; 81001; 83605; 83690; 83880; 84443; 85025; 85610; 85730; 87077; 87086; 87181; 87635; 96365; 96375; 99285; 99291; 99292; A9270; J7168; 81003